=== PATIENT | male | born 1945 | race Hispanic/Latino ===

== ENCOUNTER 2018-05-30 13:15 | Inpatient (IN) | payer OTHER, MEDICARE ==
[~2018-05-30] VITALS: Ht 162.6 cm; Wt 67.5 kg
[2018-06-06 13:49] LABS: BASOPHILS % (AUTO) 0.8 % (0.0-5.0); EOSINOPHILS % (AUTO) 4.2 % (0.0-8.0); HEMATOCRIT 38.3 % (42-54); LYMPHOCYTES % (AUTO) 18.1 % (21.0-51.0); MEAN CORPUSCULAR HEMOGLOBIN 30.4 pg (27.0-33.0); MEAN CORPUSCULAR HGB CONC 33.7 g/dL (32.0-36.0); MONOCYTES % (AUTO) 7.3 % (3.0-13.0); NEUTROPHILS % (AUTO) 69.6 % (40.0-77.0); PLATELET COUNT (AUTO) 275 K/uL (130-400); RED BLOOD CELL COUNT(AUTO) 4.25 MIL/uL (4.50-6.20); RED CELL DISTRIBUTION WIDTH 15.4 % (11.0-15.5)
[2018-06-06 13:57] LABS: HEMOGLOBIN A1C 6.7 % (4.0-6.0)
[2018-06-06 13:58] VITALS: BP 114/61
[2018-06-06] MEDS ORDERED: ATOR40TA71 PO (14:06)
[2018-06-06] MEDS ORDERED: DOCU100C33 PO (14:06)
[2018-06-06] MEDS ORDERED: ISOS30TA6 PO (14:06)
[2018-06-06] MEDS ORDERED: FURO40TA5 PO (14:06)
[2018-06-06] MEDS ORDERED: LISI-617 PO (14:06)
[2018-06-06] MEDS ORDERED: PANT20TA12 PO (14:06)
[2018-06-06] MEDS ORDERED: METF-445 PO (14:06)
[2018-06-06] MEDS ORDERED: ASPI-1181 PO (14:06)
[2018-06-06] MEDS ORDERED: MIRT15TA6 PO (14:06)
[2018-06-06] MEDS ORDERED: ERGO500014 PO (14:06)
[2018-06-06] MEDS ORDERED: METO25TA6 PO (14:06)
[2018-06-06] MEDS ORDERED: CLOP75TA32 PO (14:06)
[2018-06-06 14:07] LABS: ALBUMIN 3.6 g/dL (3.5-5.0); BILIRUBIN,TOTAL 0.4 mg/dL (0.2-1.0); POTASSIUM 4.6 mmol/L (3.5-5.1); TOTAL PROTEIN, SERUM 6.8 g/dL (6.0-8.3)
[2018-06-06 14:11] LABS: PARTIAL THROMBOPLASTIN TIME 27.3 SEC (26.3-35.5); PROTHROMBIN TIME 10.5 SEC (9.6-11.6)
[2018-06-06 14:54] LABS: HEMATOCRIT 38.3 % (42-54); PLATELET COUNT (AUTO) 275 K/uL (130-400); PLATELET FUNCTION ANALYSIS ADP > 300 SEC (62-100); PLATELET FUNCTION ANALYSIS EPI > 300 SEC (55-192)
[2018-06-06] MEDS ORDERED: CEFUROXIME SODIUM 1.5 GM VIAL IVP SCH (16:15)
[2018-06-09] VITALS (20 sets, daily range): BP systolic 90–155; BP diastolic 43–67
[2018-06-09] MEDS ORDERED: OCTYL 2-CYANOACRYLATE 1 EACH TP ONE (09:39)
[2018-06-09] MEDS ORDERED: BACITRACIN 50,000 UNIT VIAL ONE (09:39)
[2018-06-09] MEDS ORDERED: PAPAVERINE HCL 30 MG/ML 2ML VIAL ONE (09:39)
[2018-06-09] MEDS ORDERED: NITROGLYCERIN 50 MG/D5% WATER 1 BOT ONE (09:53)
[2018-06-09] MEDS ORDERED: SODIUM CHLORIDE 0.9% 1000ML 1,000 ML IV ONE (09:55)
[2018-06-09] MEDS: CEFUROXIME SODIUM 1.5 GM VIAL ONE ×2 (10:16→10:30)
[2018-06-09] MEDS ORDERED: EPINEPHRINE 1 MG/ML AMPULE ONE (10:20)
[2018-06-09] MEDS ORDERED: ESMOLOL HCL 10 MG/ML 10 ML VIAL ONE (10:20)
[2018-06-09] MEDS ORDERED: FENTANYL CITRATE PF 50 MCG/1 ML 20ML VIAL IJ ONE (10:20)
[2018-06-09] MEDS ORDERED: MIDAZOLAM HCL 1 MG/ML 5ML VIAL ONE (10:20)
[2018-06-09] MEDS ORDERED: AMINOCAPROIC ACID 250 MG/ML 20 ML VIAL IV ONE (10:20)
[2018-06-09] MEDS ORDERED: PROTAMINE SULFATE 10 MG/ML 25ML VIAL IV ONE (10:20)
[2018-06-09] MEDS ORDERED: LIDOCAINE PF 2% 5ML ABBOJECT ONE (10:20)
[2018-06-09] MEDS ORDERED: HEPARIN SODIUM 1000UNIT/ML 10ML VIAL ONE ×2 (10:20→10:40)
[2018-06-09] MEDS ORDERED: PROPOFOL 10 MG/ML 20ML VIAL IV ONE (10:20)
[2018-06-09] MEDS ORDERED: NOREPINEPHRINE BITARTRATE 1 MG/1 ML ML IV ONE (10:20)
[2018-06-09] MEDS ORDERED: ROCURONIUM 10MG/1ML SYR 10 MG/ML ML ONE (10:53)
[2018-06-09 10:54] LABS: ABG BASE EXCESS 1.3 mmol/L (-2.0-3.0); ABG HCO3 24.3 mmol/L (21.0-28.0); ABG PCO2 33 mmHg (35-48)
[2018-06-09] MEDS ORDERED: SODIUM CHLORIDE 0.9% 500ML 500 ML IV SCH (12:37)
[2018-06-09] MEDS ORDERED: SODIUM CHLORIDE 0.9% 1000ML 1,000 ML IV SCH (12:45)
[2018-06-09] MEDS ORDERED: EPINEPHRINE 8 MG in SODIUM CHLORIDE 0.9% 250 ML IV PRN (12:45)
[2018-06-09] MEDS ORDERED: ACETAMINOPHEN 650 MG SUPPOSITORY RC PRN (12:45)
[2018-06-09] MEDS ORDERED: SODIUM CHLORIDE 0.9% 250 ML IV PRN (12:45)
[2018-06-09] MEDS ORDERED: MORPHINE SULFATE 2 MG/ML 1ML SYG IV PRN (12:45)
[2018-06-09] MEDS ORDERED: DOCUSATE SODIUM 100 MG CAP PO PRN (12:45)
[2018-06-09] MEDS ORDERED: POTASSIUM PHOS 15 mMOL+NS250ML 250 ML IV PRN (12:45)
[2018-06-09] MEDS ORDERED: NITROGLYCERIN 50 MG/D5% WATER 250 BOT IV SCH (12:45)
[2018-06-09] MEDS ORDERED: CALCIUM GLUCONATE 1 GM in SODIUM CHLORIDE 0.9% 50 ML IV PRN (12:45)
[2018-06-09] MEDS ORDERED: ACETAMINOPHEN 325 MG TAB PO PRN ×2 (12:45)
[2018-06-09] MEDS ORDERED: PROPOFOL 1000 MG/100 ML 100 ML IV PRN (12:45)
[2018-06-09] MEDS ORDERED: SODIUM CHLORIDE 0.9% 10 ML VIAL IVP PRN (12:45)
[2018-06-09] MEDS ORDERED: ALBUMIN (HUMAN) 5% 250 ML IV PRN (12:45)
[2018-06-09] MEDS ORDERED: AMINOCAPROIC ACID 15,000 MG in SODIUM CHLORIDE 0.9% 250 ML IV SCH (12:45)
[2018-06-09] MEDS ORDERED: DEXTROSE 50%-WATER 50 ML DISP.SYRIN IV PRN (12:45)
[2018-06-09] MEDS ORDERED: ONDANSETRON HCL 4 MG/2 ML VIAL IV PRN (12:45)
[2018-06-09] MEDS ORDERED: NOREPINEPHRINE 4MG/NS 250ML 250 ML IV PRN (12:45)
[2018-06-09] MEDS ORDERED: GLUCAGON 1MG KIT 1 MG ML IM PRN (12:45)
[2018-06-09] MEDS ORDERED: MORPHINE SULFATE 4 MG/1ML SYG IV PRN (12:45)
[2018-06-09 13:25] LABS: ABG BASE EXCESS -2.8 mmol/L (-2.0-3.0); ABG OXYGEN SATURATION 99.1 % (95.0-99.0); ABG PCO2 34 mmHg (35-48)
[2018-06-09] MEDS ORDERED: SODIUM BICARB 8.4% 50ML SYRINGE ONE (13:29)
[2018-06-09 14:17] LABS: HEMATOCRIT 31.1 % (42-54); MEAN CORPUSCULAR HEMOGLOBIN 29.2 pg (27.0-33.0); MEAN CORPUSCULAR HGB CONC 32.3 g/dL (32.0-36.0); MEAN CORPUSCULAR VOLUME 90.4 fL (79-99); PLATELET COUNT (AUTO) 205 K/uL (130-400); RED BLOOD CELL COUNT(AUTO) 3.44 MIL/uL (4.50-6.20); RED CELL DISTRIBUTION WIDTH 15.5 % (11.0-15.5); WHITE BLOOD COUNT (AUTO) 21.5 K/uL (4.8-10.8)
[2018-06-09 14:26] LABS: ABG BASE EXCESS -2.9 mmol/L (-2.0-3.0); ABG HCO3 20.2 mmol/L (21.0-28.0); ABG OXYGEN SATURATION 98.8 % (95.0-99.0); ABG PCO2 29 mmHg (35-48)
[2018-06-09 14:31] LABS: ABG BASE EXCESS -7.9 mmol/L (-2.0-3.0); ABG HCO3 16.9 mmol/L (21.0-28.0); ABG PCO2 32 mmHg (35-48)
[2018-06-09] MEDS: INSULIN REGULAR, HUMAN 3ML 100 UNIT in SODIUM CHLORIDE 0.9% 99 ML IV SCH ×4 (14:33→22:16)
[2018-06-09 14:35] LABS: CREATININE 0.9 mg/dL (0.5-1.5); MAGNESIUM 0.8 mg/dL (1.80-2.40); POTASSIUM 3.1 mmol/L (3.5-5.1)
[2018-06-09] MEDS: SODIUM BICARB 50MEQ 50ML VIAL IV PRN ×2 (14:35→19:45)
[2018-06-09 15:09] LABS: ABG BASE EXCESS -4.7 mmol/L (-2.0-3.0); ABG HCO3 18.9 mmol/L (21.0-28.0); ABG OXYGEN SATURATION 98.7 % (95.0-99.0); ABG PCO2 30 mmHg (35-48)
[2018-06-09] MEDS: POTASSIUM CHLORIDE 20MEQ/100ML 100 ML IV PRN ×4 (15:21→21:42)
[2018-06-09] MEDS: MAGNESIUM 2GM PREMIX 50ML 50 ML IV PRN ×3 (15:35→20:24)
[2018-06-09 15:59] LABS: ABG BASE EXCESS 0.5 mmol/L (-2.0-3.0); ABG HCO3 23.4 mmol/L (21.0-28.0); ABG OXYGEN SATURATION 99.4 % (95.0-99.0); ABG PCO2 33 mmHg (35-48)
[2018-06-09 17:03] LABS: ABG BASE EXCESS -2.8 mmol/L (-2.0-3.0); ABG HCO3 22.4 mmol/L (21.0-28.0); ABG OXYGEN SATURATION 99.4 % (95.0-99.0); ABG PCO2 40 mmHg (35-48)
[2018-06-09] MEDS: TRAMADOL HCL 50 MG TABLET PO PRN (17:34)
[2018-06-09 19:06] LABS: MAGNESIUM 1.9 mg/dL (1.80-2.40); POTASSIUM 3.1 mmol/L (3.5-5.1)
[2018-06-09 19:35] LABS: ABG BASE EXCESS -6.1 mmol/L (-2.0-3.0); ABG HCO3 18.8 mmol/L (21.0-28.0); ABG OXYGEN SATURATION 99.3 % (95.0-99.0); ABG PCO2 36 mmHg (35-48)
[2018-06-09] MEDS ORDERED: CEFUROXIME SODIUM 1.5 GM VIAL ONE (20:17)
[2018-06-09] MEDS: ATORVASTATIN CALCIUM 40 MG TABLET PO SCH (21:16)
[2018-06-09] MEDS: CEFUROXIME SODIUM 1.5 GM VIAL IVP SCH (22:13)
[2018-06-09 22:23] LABS: ABG BASE EXCESS 1.6 mmol/L (-2.0-3.0); ABG HCO3 26.5 mmol/L (21.0-28.0); ABG OXYGEN SATURATION 99.4 % (95.0-99.0); ABG PCO2 42 mmHg (35-48)
[2018-06-10] VITALS (28 sets, daily range): BP systolic 83–133; BP diastolic 41–75
[2018-06-10] MEDS: TRAMADOL HCL 50 MG TABLET PO PRN (01:29)
[2018-06-10 04:16] LABS: HEMATOCRIT 28.7 % (42-54); MEAN CORPUSCULAR HEMOGLOBIN 30.3 pg (27.0-33.0); MEAN CORPUSCULAR HGB CONC 33.9 g/dL (32.0-36.0); MEAN CORPUSCULAR VOLUME 89.2 fL (79-99); PLATELET COUNT (AUTO) 228 K/uL (130-400); RED BLOOD CELL COUNT(AUTO) 3.22 MIL/uL (4.50-6.20); RED CELL DISTRIBUTION WIDTH 15.6 % (11.0-15.5); WHITE BLOOD COUNT (AUTO) 15.2 K/uL (4.8-10.8)
[2018-06-10 04:28] LABS: INR 1.01 (0.85-1.15); PARTIAL THROMBOPLASTIN TIME 27.2 SEC (26.3-35.5); PROTHROMBIN TIME 10.4 SEC (9.6-11.6)
[2018-06-10 04:37] LABS: PHOSPHORUS 1.9 mg/dL (2.5-4.9); POTASSIUM 3.7 mmol/L (3.5-5.1)
[2018-06-10] MEDS: POTASSIUM CHLORIDE 20MEQ/100ML 100 ML IV PRN ×2 (04:45→05:53)
[2018-06-10] MEDS: FUROSEMIDE 10 MG/ML 2ML VIAL IV SCH ×2 (09:00→21:52)
[2018-06-10] MEDS: ASPIRIN 325MG EC TAB 325 MG TABLET.DR PO SCH (09:33)
[2018-06-10] MEDS: PANTOPRAZOLE SODIUM 40 MG TABLET.DR PO SCH (09:33)
[2018-06-10] MEDS: CEFUROXIME SODIUM 1.5 GM VIAL IVP SCH ×2 (10:40→21:51)
[2018-06-10] MEDS ORDERED: ALBUMIN (HUMAN) 5% 250 ML IV ONE ×2 (11:10→11:30)
[2018-06-10] MEDS ORDERED: KETOROLAC TROMETHAMINE 30MG/ML ONE (11:10)
[2018-06-10] MEDS ORDERED: KETOROLAC TROMETHAMINE 30MG/ML IV ONE (12:12)
[2018-06-10] MEDS: ATORVASTATIN CALCIUM 40 MG TABLET PO SCH (21:51)
[2018-06-11] VITALS (19 sets, daily range): BP systolic 100–124; BP diastolic 38–70
[2018-06-11 03:39] LABS: HEMATOCRIT 24.9 % (42-54); MEAN CORPUSCULAR HEMOGLOBIN 29.4 pg (27.0-33.0); MEAN CORPUSCULAR HGB CONC 32.4 g/dL (32.0-36.0); MEAN CORPUSCULAR VOLUME 90.8 fL (79-99); PLATELET COUNT (AUTO) 152 K/uL (130-400); RED BLOOD CELL COUNT(AUTO) 2.74 MIL/uL (4.50-6.20); WHITE BLOOD COUNT (AUTO) 11.9 K/uL (4.8-10.8)
[2018-06-11 03:49] LABS: MAGNESIUM 1.7 mg/dL (1.80-2.40); POTASSIUM 4.5 mmol/L (3.5-5.1)
[2018-06-11] MEDS: MAGNESIUM 2GM PREMIX 50ML 50 ML IV PRN (04:03)
[2018-06-11] MEDS: TRAMADOL HCL 50 MG TABLET PO PRN ×2 (08:45→20:40)
[2018-06-11] MEDS: ASPIRIN 325MG EC TAB 325 MG TABLET.DR PO SCH (08:49)
[2018-06-11] MEDS: FUROSEMIDE 20 MG TABLET PO SCH ×2 (08:49→16:09)
[2018-06-11] MEDS: PANTOPRAZOLE SODIUM 40 MG TABLET.DR PO SCH (08:49)
[2018-06-11] MEDS: METOPROLOL TARTRATE 25 MG TAB PO SCH ×2 (08:51→20:40)
[2018-06-11] MEDS: FUROSEMIDE 10 MG/ML 2ML VIAL IV SCH (10:09)
[2018-06-11] MEDS: INSULIN HUMULIN R 100 UNIT/ML 3ML SQ SCH ×3 (11:18→20:49)
[2018-06-11] MEDS: ATORVASTATIN CALCIUM 40 MG TABLET PO SCH (20:40)
[2018-06-12 03:45] LABS: HEMATOCRIT 24.7 % (42-54); MEAN CORPUSCULAR HEMOGLOBIN 30.4 pg (27.0-33.0); MEAN CORPUSCULAR HGB CONC 33.4 g/dL (32.0-36.0); MEAN CORPUSCULAR VOLUME 91.1 fL (79-99); PLATELET COUNT (AUTO) 171 K/uL (130-400); RED BLOOD CELL COUNT(AUTO) 2.71 MIL/uL (4.50-6.20); RED CELL DISTRIBUTION WIDTH 15.2 % (11.0-15.5); WHITE BLOOD COUNT (AUTO) 9.8 K/uL (4.8-10.8)
[2018-06-12 03:59] LABS: CREATININE 0.9 mg/dL (0.5-1.5)
[2018-06-12 04:00] VITALS: BP 93/57
[2018-06-12] MEDS: INSULIN HUMULIN R 100 UNIT/ML 3ML SQ SCH ×4 (06:53→21:00)
[2018-06-12 07:00] VITALS: BP 101/63
[2018-06-12] MEDS: FUROSEMIDE 10 MG/ML 2ML VIAL IV SCH (07:27)
[2018-06-12] MEDS: METOPROLOL TARTRATE 25 MG TAB PO SCH ×2 (08:49→21:14)
[2018-06-12] MEDS: FUROSEMIDE 20 MG TABLET PO SCH ×2 (08:49→16:41)
[2018-06-12] MEDS: METFORMIN HCL 850 MG TABLET PO SCH ×2 (08:49→16:41)
[2018-06-12] MEDS: ASPIRIN 325MG EC TAB 325 MG TABLET.DR PO SCH (08:49)
[2018-06-12] MEDS: PANTOPRAZOLE SODIUM 40 MG TABLET.DR PO SCH (08:52)
[2018-06-12 11:00] VITALS: BP 97/47
[2018-06-12] MEDS: ENOXAPARIN SODIUM 30 MG/0.3 ML SQ SCH (12:40)
[2018-06-12] MEDS: TRAMADOL HCL 50 MG TABLET PO PRN ×2 (15:27→23:33)
[2018-06-12 16:05] VITALS: BP 130/68
[2018-06-12 19:52] VITALS: BP 112/64
[2018-06-12] MEDS ORDERED: LISINOPRIL 2.5 MG TABLET PO SCH (21:00)
[2018-06-12] MEDS: ATORVASTATIN CALCIUM 40 MG TABLET PO SCH (21:13)
[2018-06-12 23:41] VITALS: BP 120/63
[2018-06-13 04:26] VITALS: BP 106/60
[2018-06-13] MEDS: INSULIN HUMULIN R 100 UNIT/ML 3ML SQ SCH ×2 (07:30→11:30)
[2018-06-13 07:46] VITALS: BP 113/64
[2018-06-13] MEDS: METFORMIN HCL 850 MG TABLET PO SCH (08:00)
[2018-06-13] MEDS: METOPROLOL TARTRATE 25 MG TAB PO SCH (08:39)
[2018-06-13] MEDS: FUROSEMIDE 20 MG TABLET PO SCH (08:39)
[2018-06-13] MEDS: PANTOPRAZOLE SODIUM 40 MG TABLET.DR PO SCH (08:39)
[2018-06-13] MEDS: ASPIRIN 325MG EC TAB 325 MG TABLET.DR PO SCH (08:39)
[2018-06-13] MEDS: ENOXAPARIN SODIUM 30 MG/0.3 ML SQ SCH (08:40)
[2018-06-13] MEDS ORDERED: METO25TA6 PO (08:45)
[2018-06-13] MEDS ORDERED: LISI-617 PO (08:45)
[2018-06-13 09:16] LABS: HEMATOCRIT 24.4 % (42-54); MEAN CORPUSCULAR HEMOGLOBIN 29.8 pg (27.0-33.0); MEAN CORPUSCULAR HGB CONC 32.9 g/dL (32.0-36.0); MEAN CORPUSCULAR VOLUME 90.6 fL (79-99); PLATELET COUNT (AUTO) 183 K/uL (130-400); RED BLOOD CELL COUNT(AUTO) 2.69 MIL/uL (4.50-6.20); WHITE BLOOD COUNT (AUTO) 7.1 K/uL (4.8-10.8)
[2018-06-13 09:27] LABS: CREATININE 0.9 mg/dL (0.5-1.5)
== END 2018-06-13 12:02 | disposition home or self-care (01) | DRG 235 ==
LOC: EDSTATUS 06-06 12:00 → DAHIP 06-09 09:21 → 2CV 06-09 13:02 → 2CH 06-10 13:19 → 2DH 06-12 12:45
PROVIDERS: ADMIT Thoracic Surgery (Cardiothoracic Vascular Surgery); ATTEND Thoracic Surgery (Cardiothoracic Vascular Surgery)
PROC: 02100Z9 Bypass Coronary Artery, One Artery from Left Internal Mammary, Open Approach (ICD-10-PCS; principal; 2018-06-09 10:20)
PROC: 021109W Bypass Coronary Artery, Two Arteries from Aorta with Autologous Venous Tissue, Open Approach (ICD-10-PCS; 2018-06-09 10:20)
PROC: 06BQ4ZZ Excision of Left Saphenous Vein, Percutaneous Endoscopic Approach (ICD-10-PCS; 2018-06-09 10:20)
DX: I25.10 Atherosclerotic heart disease of native coronary artery without angina pectoris (principal); I50.23 Acute on chronic systolic (congestive) heart failure; Q25.0 Patent ductus arteriosus; I11.0 Hypertensive heart disease with heart failure; I25.5 Ischemic cardiomyopathy; E78.5 Hyperlipidemia, unspecified; I70.0 Atherosclerosis of aorta; I25.2 Old myocardial infarction; Z79.82 Long term (current) use of aspirin; Z79.899 Other long term (current) drug therapy; Z86.73 Personal history of transient ischemic attack (TIA), and cerebral infarction without residual deficits; Z95.1 Presence of aortocoronary bypass graft; Z83.3 Family history of diabetes mellitus; Z82.3 Family history of stroke
CPT/HCPCS: 36415; 71045; 71046; 80048; 80053; 80061; 82435; 82803; 82947; 82948; 83036; 83605; 83735; 84100; 84132; 84295; 85018; 85025; 85027; 85347; 85576; 85610; 85730; 86850; 86900; 86901; 86922; 93005; 93880; 94002; 94010; 94150; 97039; A4218; A7048; G0378; J0171; J0610; J0697; J1644; J1650; J1815; J1885; J1940; J2001; J2250; J2405; J2440; J2704; J2720; J3010; J3475; J3480; J3490; J7030; J7040; P9045